=== PATIENT | female | born 1955 | race Caucasian/White ===

== ENCOUNTER 2016-07-27 14:08 | Outpatient (CLI) ==
[2015-02-01 12:14] VITALS: BMI 29.9
== END 2016-07-27 14:09 | disposition home or self-care (01) ==
LOC: AMBL 14:08
PROVIDERS: ATTEND Internal Medicine
DX: R07.89 Other chest pain (principal); R53.1 Weakness; R69 Illness, unspecified; E11.9 Type 2 diabetes mellitus without complications; R19.7 Diarrhea, unspecified; Z86.711 Personal history of pulmonary embolism

== ENCOUNTER 2016-08-15 03:56 | Emergency (ER) ==
[2016-08-15 04:08] VITALS: BP 113/71; TEMP 97.6; BMI 30.9
[2016-08-15] MEDS ORDERED: EYE-STREAM OP STA (04:30)
[2016-08-15] MEDS ORDERED: FLUORETS OP STA (04:30)
[2016-08-15] MEDS ORDERED: GENTAK OPTH OINT OP STA (04:30)
--- NOTE | 2016-08-15 04:34 | ED.PDOC ---
General ED Provider: Dr. PORSHA JOHNSON-ER Chief Complaint: Eye Problem Stated Complaint: my eye hurts--it hurts to blink Time Seen by Physician: 04:00 Mode of Arrival: Walk-In Information Source: Patient Exam Limitations: No limitations Primary Care Provider: KATHERINE OHARA Nursing and Triage Documentation Reviewed and Agree: Yes EENT Complaint Exam - Eye Complaint/Exam Onset/Duration: several hours Symptoms Are: Still present Timing: Constant Initial Severity: Mild Current Severity: Moderate Location: Discreet, Left Character: Reports: Dull, Foreign body sensation Aggravating: Reports: Blinking Alleviating: Reports: None Associated Signs and Symptoms: Denies: Photophobia, Clear drainage, Purulent drainage, Vision impairment, Fever, Swelling Eye Surgical History: Reports: None Penetrating Injury Risk Factors: None Globe Rupture Risk Factors: None Acute Glaucoma Risk Factors: None Optic Artery Occlusion Risk Factors: None Visual Field: Normal Extraocular Movement: Normal Orbit Findings: Normal Globe Findings: Intact Lid Findings: Normal Corneal Findings: Clear Fluorescein Uptake: Yes (linear update over mid portion of theeye) Fundi: Normal Slit Lamp Used: No Differential Diagnoses: Corneal Abrasion Review of Systems - Review Of Systems Constitutional: Reports: No symptoms Eyes: Reports: Blurred vision, Vision change, Pain, Photophobia Ears, Nose, Mouth, Throat: Reports: No symptoms Respiratory: Reports: No symptoms Cardiac: Reports: No symptoms GI: Reports: No symptoms : Reports: No symptoms Musculoskeletal: Reports: No symptoms Skin: Reports: No symptoms Neurological: Reports: No symptoms Endocrine: Reports: No symptoms Hematologic/Lymphatic: Reports: No symptoms All Other Systems: Reviewed and Negative Past Medical History - Past Medical History Previously Healthy: No Endocrine: Reports: DM 2 Cardiovascular: Reports: None Respiratory: Reports: None Hematological: Reports: None Gastrointestinal: Reports: None Genitourinary: Reports: None Neuro/Psych: Reports: None Musculoskeletal: Reports: None Cancer: Reports: None Last Menstrual Period: PT HAS HAD A HYSTERECTOMY - Surgical History General Surgical History: Reports: Unknown - Family History Family History: Reports: Unknown - Social History Smoking Status: Never smoker Hx Substance Use: No Alcohol Screening: None Lives: With family - Immunizations Tetanus Shot up to Date: Yes Physical Exam - Physical Exam Appearance: Well-appearing, No pain distress, Well-nourished Pain Distress: Moderate Eyes: MERT, EOMI, Conjunctiva clear, Conjunctiva inflammed ENT: Ears normal, Nose normal, Oropharynx normal Respiratory: Airway patent, Breath sounds clear, Breath sounds equal, Respirations nonlabored Cardiovascular: RRR, Pulses normal, No rub, No murmur GI/: Soft, Nontender, No masses, Bowel sounds normal, No Organomegaly Musculoskeletal: Normal strength, ROM intact, No edema, No calf tenderness Skin: Warm, Dry, Normal color Neurological: Sensation intact, Motor intact, Reflexes intact, Cranial nerves intact, Alert, Oriented Psychiatric: Affect appropriate, Mood appropriate Procedures - Eye Procedure Location of Foreign Body: no foreign body left eye Tetracaine Drops Administered: Yes Depth: Superficial Critical Care Note - Critical Care Note Total Time (mins): 0 Course - Course Orders, Labs, Meds: Orders Category Date Time Status ED EYE PATCH .ONCE EMERGENCY 08/15/16 04:30 Active Balanced Salt Solution [Eye-Stream] MEDS 08/15/16 04:30 Stat 1 bottle OP ONCE STA Fluorescein Sodium [Fluorets] MEDS 08/15/16 04:30 Stat 1 strip OP ONCE STA Gentamicin Sulfate [Gentak Opth Oint] MEDS 08/15/16 04:30 Stat 1 applic OP ONCE STA Medications Generic Name Dose Route Start Last Admin Trade Name Freq PRN Reason Stop Dose Admin Eye Irrigation Solution 1 bottle 08/15/16 04:30 Eye-Stream OP 08/15/16 04:31 ONCE STA Fluorescein Sodium 1 strip 08/15/16 04:30 Fluorets OP 08/15/16 04:31 ONCE STA Gentamicin Sulfate 1 applic 08/15/16 04:30 Gentak Opth Oint OP 08/15/16 04:31 ONCE STA Vital Signs: Temp Pulse Resp BP Pulse Ox 08/15/16 03:57 97.6 F 75 20 113/71 100 Departure - Departure Time of Disposition: 04:34 Disposition: HOME SELF-CARE Discharge Problem: Abrasion of left cornea Qualifiers: Encounter type: initial encounter Qualifier Code: (S05.02XA) Injury of conjunctiva and corneal abrasion without foreign body, left eye, initial encounter Instructions: Corneal Abrasion (ED) Condition: Good Pt referred to PMD for follow-up: Yes Additional Instructions: keep eye patched---see your eye doctor this am to make sure eye is healing properly Allergies/Adverse Reactions: Allergies ketorolac tromethamine [From Toradol] Adverse Reaction (Verified 08/15/16 04:07) ELEVATES THE BUN AND CREAT metaxalone [From Skelaxin] Adverse Reaction (Verified 08/15/16 04:07) HEADACHE topiramate [From Topamax] Adverse Reaction (Verified 08/15/16 04:07) Swelling venom-wasp [wasp venom] Adverse Reaction (Verified 08/15/16 04:07) Swelling Home Medications: Ambulatory Orders Diazepam [Valium] 5 mg PO Q12HR PRN 02/01/15 Diclofenac Sodium [Voltaren 1% Gel] 4 gm TP QID 02/01/15 Diclofenac Submicronized [Zorvolex] 18 mg PO TID 02/01/15 Lidocaine HCl [Lidorx] 30 ml TP BID 02/01/15 Lisinopril [Zestril] 20 mg PO DAILY 02/01/15 Ondansetron HCl [Zofran] 4 mg PO Q12HR PRN 02/01/15 Oxycodone HCl/Acetaminophen [Percocet 10-325 mg Tablet] 1 each PO 5XD PRN Rivaroxaban [Xarelto] 20 mg PO DAILY 02/01/15 Albuterol Sulfate [Proair Respiclick] 90 mcg IH DAILY PRN 02/02/15 Benzonatate [Tessalon Perles] 100 mg PO TID PRN 02/02/15 Desonide [Desowen] 60 gm TP BID 02/02/15 Ergocalciferol (Vitamin D2) [Vitamin D2] 50,000 unit PO WEEKLY 02/02/15 Fluticasone/Salmeterol [Advair 250-50 Diskus] 1 each IH Q12HR PRN 02/02/15 Furosemide [Lasix] 40 mg PO DAILY 02/02/15 Guaifenesin [Mucinex] 1,200 mg PO BID 02/02/15 Hydrocortisone [Cortef] 20 mg PO DAILY 02/02/15 Ibandronate Sodium [Boniva] 150 mg PO MONTHLY 02/02/15 Ipratropium/Albuterol Neb [Duoneb] 1 vial NEB RTQ6H 02/02/15 Metformin HCl [Metformin HCl ER] 500 mg PO BID 02/02/15 Pantoprazole Sodium [Protonix] 40 mg PO BID 02/02/15 Potassium Chloride [Klor-Con 10] 10 meq PO DAILY 02/02/15 Propranolol HCl [Inderal] 20 mg PO BID 02/02/15 Simvastatin [Zocor] 20 mg PO DAILY 02/02/15 Sucralfate [Carafate] 1 gm PO BID 02/02/15 Disposition Discussed With: Patient
[2016-08-15] MEDS ORDERED: TETRACAINE 0.5% UNIT-DOSE OP ONE (04:35)
== END 2016-08-15 04:43 | disposition home or self-care (01) ==
LOC: ED 03:56
DX: S05.02XA Injury of conjunctiva and corneal abrasion without foreign body, left eye, initial encounter (principal)
CPT/HCPCS: 99282